=== PATIENT | male | born 1995 | race Caucasian/White ===

== ENCOUNTER 2019-06-10 15:16 | Outpatient (CLI) | payer OTHER, SELFPAY ==
[2019-06-10 15:38] LABS: Abs Immature Grans 0.02 k/cumm (0.0-0.09); Absolute Basophil Count 0.04 k/cumm (0.0-0.2); Absolute Eosinophil Count 0.38 k/cumm (0.0-0.7); Absolute Lymphocyte Count 3.01 k/cumm (1.2-3.4); Absolute Monocyte Count 0.67 k/cumm (0.11-0.7); Absolute Neutrophil Count 4.48 k/cumm (1.2-6.7); Basophils % 0.5; Eosinophils % 4.4; HCT 46.4 % (40.0-50.0); Immature Grans % 0.2; Mean Corp. HGB Concentration 34.5 g/dL (32.0-36.0); Mean Corpuscular Hemoglobin 30.5 pg (27.0-33.0); Mean Corpuscular Volume 88.5 fL (80-95); Mean Platelet Volume 10.1 fL (8.0-11.0); Monocytes % 7.8; Neutrophils % 52.1; Platelet Count 196 x1000/uL (130-400); RBC 5.24 m/cumm (4.50-6.00); RBC Distribution Width 12.1 % (11.8-14.1)
[2019-06-11 10:26] LABS: Syphilis Serology (RPR) Negative (Negative)
[2019-06-11 10:46] LABS: HIV-1/2 Ag & Ab Screen Negative (NEGAT)
== END 2019-06-10 15:36 ==
PROVIDERS: PCP Family Medicine; Visit Provider Family Medicine
DX: Z11.3 Encounter for screening for infections with a predominantly sexual mode of transmission (principal); R59.1 Generalized enlarged lymph nodes; Z11.4 Encounter for screening for human immunodeficiency virus [HIV]
CPT/HCPCS: 36415; 87389; 85025; 86592

== ENCOUNTER 2019-07-20 09:58 | Outpatient (CLI) | payer OTHER, SELFPAY ==
--- NOTE | 2019-07-20 09:18 | DI.RAD_ITS ---
EXAM: XR CLAVICLE LT INDICATION: F/U FRACTURE. COMPARISON: No exams were available for comparison TECHNIQUE: 2D digital imaging was performed. FINDINGS: There has been interval healing of the previously noted mid clavicle fracture. There is bony bridgi ng between the fracture fragments. No new abnormality is seen.
== END 2019-07-20 10:18 ==
PROVIDERS: PCP Family Medicine; Visit Provider Student in an Organized Health Care Education/Training Program
DX: S42.022D Displaced fracture of shaft of left clavicle, subsequent encounter for fracture with routine healing (principal)
CPT/HCPCS: 73000

== ENCOUNTER 2019-07-21 09:49 | Outpatient (REF) | payer OTHER, SELFPAY ==
[2019-07-22 16:11] LABS: GC Result Negative (Negative)
[2019-07-22 16:12] LABS: Chlamydia Result Positive (Negative)
== END 2019-07-21 10:09 ==
LOC: LBN 09:49
PROVIDERS: PCP Family Medicine; Visit Provider Family Medicine
DX: Z11.3 Encounter for screening for infections with a predominantly sexual mode of transmission (principal)
CPT/HCPCS: 87491; 87591

== ENCOUNTER 2019-10-08 09:57 | Outpatient (CLI) | payer OTHER, SELFPAY ==
[2019-10-09 14:49] LABS: Chlamydia Result Negative (Negative); GC Result Negative (Negative)
== END 2019-10-08 10:17 ==
PROVIDERS: PCP Family Medicine; Visit Provider Family Medicine
DX: Z11.3 Encounter for screening for infections with a predominantly sexual mode of transmission (principal)
CPT/HCPCS: 87491; 87591

== ENCOUNTER 2020-02-25 06:19 | Emergency (ER) | payer BC, OTHER, SELFPAY ==
[2020-02-25 06:25] VITALS: BP 139/85; PULSE 91; RESP 16; TEMP 36.9; O2SAT 97
--- NOTE | 2020-02-25 06:27 | ED.GENADUL_ITS ---
Discharge Plan Disposition Patient Disposition: HOME Condition: Good Discharge Details Chief Complaint: RespSymp Clinical Impression: Conjunctivitis, Rhinitis Primary Care Provider: Kenny Ruffin ED Provider: Maxi Chan Home Meds and New Rx's Prescriptions: No Action No Known Home Meds RF: 0 Discharge Instructions Additional Instructions: Suspect these are allergy symptoms. Would try long-acting allergy medication like Zyrtec or Claritin. Would also try some allergy eyedrops for the eye symptoms. COVID swab should be back with in 24 hours. 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 Follow-up with primary care if continued symptoms. Return to the ED for mental status changes, worsening shortness of breath, other concerns. Referrals: Occupational Medicine [Outside] Kenny Ruffin DO [Primary Care Provider] - Medical Decision Making Doubt this is COVID. Most likely allergy related given the runny nose, sneezing, eye symptoms. Potentially other viral illness. However, given complaint of mild cough and shortness of breath we will do COVID swab now and sent home. 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 HPI General Mode of arrival: ambulatory . Date/Time Provider Initiated Documentation: 02/25/20 06:27 . Limitations to Documentation: no limitations . Information obtained by: patient and RN notes reviewed . HPI Narrative: Patient presents to ED with few day history of worsening respiratory symptoms. Initially started out as runny nose and sneezing. Now has burning watery eyes. Has a slight cough and mild shortness of breath. Denies fever. Denies chest pain. 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 Has not traveled to any high risk areas. Was unsure whether this was allergies versus viral infection versus COVID. Nurs ing poultry farm supervisor sent him in to be evaluated prior to working. Related Data Home Medications Medication Instructions Recorded Confirmed Unknown [No Known Home Meds] 02/25/20 02/25/20 Allergies Allergy/AdvReac Type Severity Reaction Status Date / Time No Known Allergies Allergy Verified 02/25/20 06:28 Review of Systems Narrative: As documented in HPI otherwise negative as below. Const: no fever, chills, weakness Resp: no pleuritic pain CV: no CP, diaphoresis, edema, syncope GI: no abdominal pain, nausea, vomiting, diarrhea Neuro: no headache, numbness, focal weakness, confusion PFSH Surgical History No significant past surgical history (Acute) Family History (Updated 06/08/19 @ 15:33 by Yoselyn Seymour LPN) Paternal Grandfather Heart disease Hypertension Father Hypertension Mother No problems noted. Father No problems noted. 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 -[employer] Sexually active: Yes Do you think of yourself as: straight/heterosexual Current gender identity: male What is your relationship status?: living with partner Panel score (0-1 are the most socially isolated patients): 1 What type of physical activity do you participate in: regular exercise Frequency: daily Seatbelt use: always Working smoke detector in home: Yes Carbon monox detector in home: Yes Do you feel safe at home: Yes Do you feel safe in your relationship?: Yes Exam Narrative Exam Narrative: Vitals: Afebrile. Normal vitals. Normal room air pulse ox. Const: WDWN male in NAD. HEENT: NC/AT. Normal facial exam. Eyes: Injected conjunctiva. Neck: Supple. Trachea midline. Lungs: Normal respiratory effort. Lungs are clear. Cor: RRR without murmur/gallop. Neuro: A+O x 3. Normal speech, mentation, gait. Cranial nerves II - XII grossly intact. No gross motor or sensory deficit. Ext: No C/C/E. Skin: Warm and dry without rash.
[2020-02-26 13:59] LABS: COVID-19 RT-PCR UVMMC Result Negative (Negative)
== END 2020-02-25 06:49 | disposition home or self-care (01) ==
PROVIDERS: Emergency Provider Emergency Medicine; PCP Family Medicine
DX: J00 Acute nasopharyngitis [common cold] (principal); R06.02 Shortness of breath; B30.9 Viral conjunctivitis, unspecified; R05 Cough; Z11.59 Encounter for screening for other viral diseases
CPT/HCPCS: 99282; U0003

== ENCOUNTER 2020-03-04 06:51 | Emergency (ER) | payer BC, OTHER, SELFPAY ==
--- NOTE | 2020-03-04 06:57 | W.ED.GENAD ---
Discharge Plan Disposition Patient Disposition: HOME Condition: Good Discharge Details Chief Complaint: EyeProblem Clinical Impression: Conjunctivitis Primary Care Provider: Kenny Ruffin ED Provider: Maxi Chan Home Meds and New Rx's Prescriptions: New erythromycin 5 mg/gram (0.5 %) Ointment 0.5 cm OU QID Qty: 3.5 RF: 0 Naphcon-A 0.025-0.3 % drops 1 drp OP QID PRNQty: 15 RF: 0 Discharge Instructions Instructions: Conjunctivitis (ED) Additional Instructions: Still think this is allergy related and we will start you on Naphcon-A drops. There does appear to be some purulent drainage so will cover for bacterial conjunctivitis with erythromycin. Please contact [facility] for follow-up next week. Return to ED for eye pain, visual change, fever. Referrals: [facility] [Outside] Medical Decision Making Patient with bilateral conjunctivitis which I think still is allergy related. He does however have increased chemosis and some purulent discharge in the left eye. Visual acuity was fine here. Will put him on Naphcon A for the allergic conjunctivitis. Will start erythromycin ointment to cover for bacterial conjunctivitis. I will refer him to his care specialist, Rachel. Return to ED for fever, eye pain, visual change. HPI General Mode of arrival: ambulatory. Date/Time Provider Initiated Documentation: 03/04/20 06:57. Limitations to Documentation: no limitations. Information obtained by: patient. HPI Narrative: Patient returns to ED with continued redness, irritated, swollen eyes bilaterally. He has been having this issue on and off for the last 2 weeks. He has tried homeopathic pink eye drops. These seem to help some. He has tried allergy medication like Claritin which also has not helped. Last night his eyes got much worse with increased swelling and now some drainage from the left eye. He has had no fever. He has no other URI type symptoms other than some nasal congestion. He has never had problems with allergies before. Related Data Home Medications Medication Instructions Recorded Confirmed erythromycin 0.5 cm OU QID #3.5 gm 03/04/20 naphazoline-pheniramine [Naphcon-A] 1 drp OP QID PRN #15 ml 03/04/20 Previous Rx's Medication Instructions Recorded erythromycin 0.5 cm OU QID #3.5 gm 03/04/20 naphazoline-pheniramine [Naphcon-A] 1 drp OP QID PRN #15 ml 03/04/20 Allergies Allergy/AdvReac Type Severity Reaction Status Date / Time No Known Allergies Allergy Verified 03/04/20 07:01 General PANDA: 4 Review of Systems Narrative: As documented in HPI otherwise negative as below. Const: no fever, chills, weakness Resp: no cough, SOB, pleuritic pain CV: no CP, diaphoresis, edema, syncope GI: no abdominal pain, nausea, vomiting, diarrhea PFSH Medical History Fracture of left clavicle (Resolved ~12/2013) Fracture of right clavicle (Acute ~2008) Surgical History No significant past surgical history (Acute) Family History (Updated 06/08/19 @ 15:33 by Yoselyn Seymour LPN) Paternal Grandfather Heart disease Hypertension Father Hypertension Mother No problems noted. Father No problems noted. 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 -[employer] Sexually active: Yes Do you think of yourself as: straight/heterosexual Current gender identity: male What is your relationship status?: living with partner Panel score (0-1 are the most socially isolated patients): 1 What type of physical activity do you participate in: regular exercise Frequency: daily Seatbelt use: always Working smoke detector in home: Yes Carbon monox detector in home: Yes Do you feel safe at home: Yes Do you feel safe in your relationship?: Yes Exam Const General: cooperative, comfortable and no acute distress Orientation: alert and oriented x3 HENMT Head: normal to inspection, normocephalic and atraumatic Face and sinus: normal facial exam Eyes Periorbital: periorbital findings abnormal left periorbital swelling (mild) Conjunctivae: conjunctival abnormality bilaterally conjunctival chemosis, conjunctival injection and discharge purulent (left) Cornea: corneas normal and fluorescein used Pupils: PERRL EOM: EOM intact bilaterally Neck Neck: trachea midline and supple Neuro General: patient alert, patient oriented x3, gait normal, no focal motor deficits and CN's II-XI intact bilaterally Sensory Exam: no sensory deficits noted
[2020-03-04 06:58] VITALS: BP 146/97; PULSE 85; RESP 18; TEMP 37.2; O2SAT 96
[2020-03-04] MEDS: Tetracaine 0.5% 4 ML BTL OP (07:14)
[2020-03-04] MEDS: Fluorescein STRIPS 100/BOX 1 MG OP (07:14)
[2020-03-04] MEDS: Erythromycin Ophth Oint 3.5 GM TUBE OU (07:31)
== END 2020-03-04 07:30 | disposition home or self-care (01) ==
PROVIDERS: Emergency Provider Emergency Medicine; PCP Family Medicine
DX: H10.13 Acute atopic conjunctivitis, bilateral (principal)
CPT/HCPCS: 99283

== ENCOUNTER 2020-11-21 13:05 | Outpatient (REF) | payer SELFPAY ==
[2020-11-22 15:39] LABS: Chlamydia Result Negative (Negative); GC Result Negative (Negative)
== END 2020-11-21 13:06 | disposition home or self-care (01) ==
LOC: LBN 13:05
PROVIDERS: PCP Family Medicine; Visit Provider Family Medicine
DX: Z11.3 Encounter for screening for infections with a predominantly sexual mode of transmission (principal)
CPT/HCPCS: 87491; 87591